=== PATIENT | male | born 1995 | race Caucasian/White ===

== ENCOUNTER 2023-04-28 04:28 | Emergency (ER) | payer OTHER, SELFPAY ==
--- NOTE | ~2023-04-28 | XR_ITS ---
EXAMINATION: XR FOOT, RIGHT CLINICAL INFORMATION: Pain at great toe MTP COMPARISON: None available. TECHNIQUE: AP, lateral, and oblique views of the right foot. FINDINGS: Osseous alignment is anatomic. Joint spaces are maintained. No acute fracture is seen. No significant focal soft tissue abnormality identified. XR/XR foot RT min 3V IMPRESSION: No acute findings identified.
--- NOTE | ~2023-04-28 | XR_ITS ---
EXAMINATION: XR KNEE, RIGHT CLINICAL INFORMATION: Fall COMPARISON: None available. TECHNIQUE: Four views of the right knee. FINDINGS: Osseous alignment is anatomic. Joint spaces are maintained. No acute fracture is seen. No significant joint effusion. There are ovoid densities posterior to the femoral shaft on the lateral view which may reflect overlying external objects. XR/XR knee RT 4V IMPRESSION: 1. No acute osseous findings. 2. Ovoid densities posterior to the femoral shaft on the lateral view may reflect overlying external objects.
[2023-04-28 04:42] VITALS: BP 128/92; BP 143/90; PULSE 104; PULSE 113; RESP 16; TEMP 36.8; O2SAT 95; O2SAT 99; BMI 34.9
[2023-04-28 04:45] VITALS: BP 143/90; PULSE 113; RESP 16; TEMP 36.8; O2SAT 95
[2023-04-28] MEDS: Acetaminophen 325 MG TABLET 975 MG PO (05:57)
[2023-04-28] MEDS: Ibuprofen 400 MG TABLET PO (05:57)
[2023-04-28] MEDS: Bacitracin Oint 0.9 GM PACKET 1 APPL TOPICAL (05:58)
[2023-04-28] MEDS: Diphth,Pertus(ACell),Tet Adult 0.5 ML SYRINGE IM (05:58)
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
[2023-04-28 07:22] VITALS: BP 118/71; PULSE 94; RESP 18; TEMP 36.8; O2SAT 92
--- NOTE | 2023-04-28 08:09 | PC.NURSE ---
patient ambulating with steady gait, provided with additional ice packs and herb wraps.
== END 2023-04-28 08:10 | disposition home or self-care (01) ==
PROVIDERS: Emergency Provider Student in an Organized Health Care Education/Training Program
DX: S89.91XA Unspecified injury of right lower leg, initial encounter (principal); S80.211A Abrasion, right knee, initial encounter; M79.642 Pain in left hand; M79.641 Pain in right hand; W19.XXXA Unspecified fall, initial encounter; Y93.9 Activity, unspecified; Y92.9 Unspecified place or not applicable; Y99.9 Unspecified external cause status
CPT/HCPCS: 73564; 73630; 90471; 90715; 99284

== ENCOUNTER → 2023-04-29 08:51 | Outpatient (BNVA) | payer OTHER, SELFPAY | PROVIDERS: Visit Provider Physician Assistant | DX: S83.91XA Sprain of unspecified site of right knee, initial encounter (principal); S93.601A Unspecified sprain of right foot, initial encounter; S80.212A Abrasion, left knee, initial encounter; S60.511A Abrasion of right hand, initial encounter; W01.198A Fall on same level from slipping, tripping and stumbling with subsequent striking against other object, initial encounter; Y35.891A Legal intervention involving other specified means, law enforcement official injured, initial encounter | CPT/HCPCS: 99204 ==

== ENCOUNTER → 2023-05-03 13:49 | Outpatient (BNVA) | payer OTHER, SELFPAY | PROVIDERS: Visit Provider Physician Assistant | DX: S83.91XA Sprain of unspecified site of right knee, initial encounter (principal); S93.601A Unspecified sprain of right foot, initial encounter; S60.512A Abrasion of left hand, initial encounter; S80.211A Abrasion, right knee, initial encounter; W01.198A Fall on same level from slipping, tripping and stumbling with subsequent striking against other object, initial encounter; Y35.891A Legal intervention involving other specified means, law enforcement official injured, initial encounter | CPT/HCPCS: 99213 ==

== ENCOUNTER → 2024-06-06 08:51 | Outpatient (BNVA) | payer OTHER, SELFPAY | PROVIDERS: Visit Provider Physician Assistant | DX: S16.1XXA Strain of muscle, fascia and tendon at neck level, initial encounter (principal); V89.0XXA Person injured in unspecified motor-vehicle accident, nontraffic, initial encounter; W22.09XA Striking against other stationary object, initial encounter; G47.26 Circadian rhythm sleep disorder, shift work type; Z13.1 Encounter for screening for diabetes mellitus; Z13.29 Encounter for screening for other suspected endocrine disorder | CPT/HCPCS: 80053; 82375; 83036; 84402; 84403; 84443; 99204 ==

== ENCOUNTER → 2024-06-11 09:05 | Outpatient (BNVA) | payer OTHER, SELFPAY | PROVIDERS: Visit Provider Internal Medicine | DX: S16.1XXA Strain of muscle, fascia and tendon at neck level, initial encounter (principal); V89.0XXA Person injured in unspecified motor-vehicle accident, nontraffic, initial encounter; G47.26 Circadian rhythm sleep disorder, shift work type | CPT/HCPCS: 99213 ==

== ENCOUNTER → 2024-06-18 07:47 | Outpatient (BNVA) | payer OTHER, SELFPAY | PROVIDERS: PCP Nurse Practitioner Family; Visit Provider Internal Medicine | DX: G47.26 Circadian rhythm sleep disorder, shift work type (principal) | CPT/HCPCS: 99213 ==

== ENCOUNTER 2024-06-19 07:34 | Outpatient (REF) | payer OTHER, SELFPAY ==
--- OUTSIDE RECORDS SUMMARY | 2024-06-19 09:03 | XMS_ITS | Continuity of Care Document ---
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 It does not include entries that were removed or entered in error. Substance Category Reaction Severity Reaction type Status Date Reported Comments Source No Known Allergies Drug allergy (disorder) active 09/29/2016 [facility] Immunizations Combined list of available immunizations from the Department of Defense and Veterans Affairs facilities. 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 Integration Engineer Status Comments Source influenza, injectable, quadrivalent 2020 zzAddy ht Arm [id number] 158 Seqirus complet ed influenza , injectabl e, quadrival ent 04/02/21 Given Ambulat ory Pharmac y influenza, injectable, quadrivalent 2020 [id number] 943 158 [employer] complet ed influenza , injectabl e, quadrival ent 04/02/21 Given Ambulat ory Pharmac y influenza, injectable, quadrivalent, contains preservative 1 2020 YOAN CALDERÓN [id number] 943 158 Se[employer]irus (SEQ) complet ed influenza , injectabl e, quadrival ent, contains preservat davis DoD COVID Vaccine Moderna 2020 [id number] complet ed COVID Vaccine Moderna 02/10/21 Given Ambulat ory Pharmac y COVID Vaccine Moderna 2020 [id number] complet ed COVID Vaccine Moderna 02/10/21 Given Ambulat ory Pharmac y SARS-COV-2 (COVID-19) vaccine, mRNA, spike protein, LNP, preservative free, 100 mcg or 50 mcg dose 2 2020 [id number] 207 Moderna [employer] (MOD) complet ed SARS-COV- 2 (COVID-19 [...] 50 mcg dose 1 [id number] Moderna Dokogeo, [employer] (MOD) complet ed SARS-COV- 2 (COVID-19 ) vaccine, mRNA, spike protein, LNP, preservat davis free, 100 mcg or 50 mcg dose DoD influenza, injectable, quadrivalent- pf 2020 [id number] 61 150 Seqirus complet ed influenza , injectabl e, quadrival ent-pf 06/07/20 Given Ambulat ory Pharmac y influenza, injectable, quadrivalent- pf 2020 [id number] 61 150 Se[employer] complet ed influenza , injectabl e, quadrival ent-pf 06/07/20 Given Ambulat ory Pharmac y Influenza, injectable, quadrivalent, preservative free 0 2020 [id number] 61 150 Se[employer]irus (SEQ) complet ed Influenza , injectabl e, quadrival ent, preservat davis free DoD influenza, injectable, quadrivalent- pf 2018 [id number] 650 150 Se[employer]irus complet ed influenza , injectabl e, quadrival ent-pf 04/14/19 Given Ambulat ory Pharmac y Influenza, injectable, quadrivalent, preservative free 0 2018 [id number] 650 150 Se[employer]irus (SEQ) complet ed Influenza , injectabl e, quadrival ent, preservat davis free DoD influenza, injectable, quadrivalent- pf 2017 [id number] 150 Se[employer]irus complet ed influenza , injectabl e, quadrival ent-pf 03/11/18 Given Ambulat ory Pharmac y influenza, injectable, quadrivalent- pf 2017 [id number] 150 Se[employer]irus complet ed influenza , injectabl e, quadrival ent-pf 03/11/18 Given Ambulat ory Pharmac y Influenza, injectable, quadrivalent, preservative free 0 2017 [id number] 150 Se[employer]irus (SEQ) comple t ed Influenza [...] vaccine DoD influenza, injectable, quadrivalent- pf 2016 [id number] 150 Se[employer]irus complet ed influenza , injectabl e, quadrival ent-pf 05/06/17 Given Ambulat ory Pharmac y influenza, injectable, quadrivalent- pf 2016 [id number] 150 Se[employer]irus complet ed influenza , injectabl e, quadrival ent-pf 05/06/17 Given Ambulat ory Pharmac y Influenza, injectable, quadrivalent, preservative free 0 2016 [id number] 150 Se[employer]irus (SEQ) comple t ed Influenza [...] vaccine DoD hepatitis B pediatric/ado [facility]cent [id number] GlaxoSmithKli ne complet ed hepatitis B pediatric /adolesce nt 04/21/16 Given Ambulat ory Pharmac y Hep A, ped/adol, 2 dose [facility] [id number] 83 GlaxoSmithKli ne complet ed Hep A, ped/adol, 2 dose 04/21/16 Given Ambulat ory Pharmac y poliovirus vaccine, inactivated 2015 [facility] Thigh [id number] 10 sanofi pasteur complet ed polioviru s vaccine, inactivat ed 04/21/16 Given Ambulat ory Pharmac y Hep A, ped/adol, 2 dose 2015 [id number] 83 GlaxoSmithKli ne complet ed Hep A, ped/adol, 2 dose 04/21/16 Given Ambulat ory Pharmac y poliovirus vaccine, inactivated 2015 [id number] 10 sanofi pasteur complet ed polioviru s [...] poliovirus vaccine, inactivated 1 2015 RITA SCHMIDT [id number] 10 Sanofi Pasteur (PMC) complet ed polioviru s vaccine, inactivat ed DoD hepatitis A vaccine, pediatric/ado lescent dosage, 2 dose schedule 1 2015 ROXANA RITA [id number] 83 SmithKline (SKB) complet ed hepatitis A vaccine, pediatric /adolesce nt dosage, 2 dose schedule DoD tuberculin purified protein derivative 2015 zzLef t Arm [id number] 96 sanofi pasteur complet ed tuberculi n purified protein derivativ e 03/19/16 Given Ambulat ory Pharmac y adenovirus vaccine, live 2015 [id number] 143 Teva Pharmaceutica ls complet ed adenoviru s vaccine, live 03/19/16 Given Ambulat ory Pharmac y tetanus, diphtheria, acellular pertu is 2015 zzLef t Arm [id number] 115 GlaxoSmithKli ne complet ed tetanus, diphtheri a, acellular pertussis 03/19/16 Given Ambulat ory Pharmac y meningococcal oligosacchari de (MCV4O) 2015 zzRig ht Arm [id number] 136 sanofi pasteur complet ed meningoco ccal oligosacc haride (MCV4O) 03/19/16 Given Ambulat ory Pharmac y influenza, seasonal, injectable-pf 2015 zzLef t Arm [id number] 140 Se[employer]irus complet ed influenza , seasonal, injectabl e-pf 03/19/16 Given Ambulat ory Pharmac y tetanus, diphtheria, acellular pertu is 2015 [id number] 115 GlaxoSmithKli ne complet ed tetanus, diphtheri a, acellular pertussis 03/19/16 Given Ambulat ory Pharmac y meningococcal oligosacchari de (MCV4O) 2015 [id number] 136 sanofi pasteur complet ed meningoco ccal oligosacc haride (MCV4O) 03/19/16 Given Ambulat ory Pharmac y influenza, seasonal, injectable-pf 2015 [id number] 140 Seqirus complet ed influenza , seasonal, injectabl e-pf 03/19/16 Given Ambulat ory Pharmac y adenovirus vaccine, live 2015 [id number] 1 143 Teva Pharmaceutica ls complet ed adenoviru s vaccine, live 03/19/16 Given Ambulat ory Pharmac y tuberculin skin test; purified protein derivative solution, intradermal 1 2015 Unknown, Provider [id number] 96 Sanofi Pasteur (PMC) complet ed tuberculi [...] conjugate vaccine (MCV4O) 1 2015 Unknown, Provider [id number] 136 Sanofi Pasteur (PMC) complet ed meningoco ccal oligosacc haride (groups A, C, Y and W-135) diphtheri a toxoid conjugate vaccine (MCV4O) DoD Influenza, seasonal, injectable, preservative free 1 2015 Unknown, Provider [id number] 140 Se[employer]irus (SEQ) complet ed Influenza , seasonal, injectabl e, preservat davis free DoD Adenovirus, type 4 and type 7, live, oral 1 2015 Unknown, Provider [id number] 1 143 [employer] (BRR) complet ed [...] ADM Date DC Date Status Disposition Source [facility] John calvillo([facility] Hearing Conservat ion) OUTPATIENT [id number] ADILSON MCKEON A 03/18 Released w/o Limitations [facility] Juan M gan([facility] D Hearing Conserv ation) [facility] John calvillo([facility] Optometry Clinic) OUTPATIENT [id number] DEWAYNE BURTON 03/18 Released w/o Limitations [facility] Juan M gan([facility] D Optomet ry Clinic) [facility] John calvillo([facility] Rec[employer] Medical [employer]) OUTPATIENT [id number] INITIAL INPROCE FLIP KEARNEY 03/23 Released w/o Limitations [facility] Juan M gan(MCR D [employer] ) [facility] John calvillo(MCRD [employer]) OUTPATIENT [id number] 2ND VISIT FOR FLIP GARNER 04/21 Released w/o Limitations [facility] Juan M gan(MCR D [employer] ) [facility]) OUTPATIENT [id number] gabbie-imm s KRIS, YVONNE ESQUIVEL 09/22 Released w/o Limitations [facility]( [facility]) [facility]) OUTPATIENT [id number] GABBIE-COL D SYMPTOM RADHA SEXTON 09/29 Sick at Home/Quarter s [facility]( [facility]) [facility]) OUTPATIENT [id number] gabbie-sep s dalei RADHA Mcleod 09/29 Released w/o Limitations [facility]( [facility]) [facility]) OUTPATIENT [id number] 9 Notes Entered by: ADRIANO SHERMAN 01 Apr 2021 0714 ------- ------- ------- ------- -- FLU WILL DENNIS 04/01 Released w/o Limitations [facility]( [facility]) Procedures Combined list of: 1) Procedures from Department of Veterans Affairs facilities going back up to thelast 18 months, not all VA non-surgical procedures are included; 2) All procedures from the Department of Defense facilities. Procedure Procedure Type Code Date Augusto Garcia e Immunization Administration By Injection, One Vaccine Immunization Administration By Injection, One Vaccine 41001 LUIS MANUEL BOWMAN Hepatitis A And Hepatitis B (Intramuscular Use) Adult Dosage Hepatitis A And Hepatitis B (Intramuscular Use) Adult Dosage [id number] 017 LUIS MANUEL ROSENBAUM Hep A-Hep B; Series #: 1; 1.0 mL; IM; Left Arm; Mfg: Other; Lot: [id number]. [facility] Physician Supervised Injection Intramuscular Antibiotic Physician Supervised Injection Intramuscular Antibiotic 79767 [facility] Hepatitis B Vaccine (Active); [place] To 11 Years Hepatitis B Vaccine (Active); [place] To 11 Years [address]195 [facility] Hep B, adolescent or pediatric; Series #: 1; .5 mL; IM; Right Thigh; Mfg: [employer]; Lot: [id number]. [facility] Vaccines Viral Polio, Inactivated Vaccines Viral Polio, Inactivated 41484 [facility] IPV; Series #: 1; .5 mL; IM; Right Thigh; Mfg: [employer] Pasteur; Lot: [id number]. [facility] Hep A Vac Ped/Adol Dosage (Intramusc Use) 2 Dose Schedule Hep A Vac Ped/Adol Dosage (Intramusc Use) 2 Dose Schedule 51340 [facility] Hep A ped/adol, 2 dose; Series #: 1; .5 mL; IM; Right Thigh; Mfg: [employer]; Lot: [id number]. [facility] Immunization Administration By Injection, One Vaccine Immunization Administration By Injection, One Vaccine 31997 [facility] Immunization Administration By Injection, Each Additional Vaccine Immunization Administration By Injection, Each Additional Vaccine 82039 [facility] Skin Test Anergy Tuberculin Intradermal Skin Test Anergy Tuberculin Intradermal 27804 [facility] Meningococcal Conjugate Vaccine Quadrivalent Serogroups A, C, Y, W-135 [facility] Tdap Vaccine Tdap Vaccine 18728 [facility] Influenza Split Virus Vaccine 0.5mL Dosage Intramuscular Preservative Free [facility] Vaccines Adenovirus Type 7 Live, For Oral Use Vaccines Adenovirus Type 7 Live, For Oral Use 85334 [facility] Immunization Administration By Injection, One Vaccine Immunization Administration By Injection, One Vaccine 37898 [facility] Immunization Administration By Injection, Each Additional Vaccine Immunization Administration By Injection, Each Additional Vaccine 73174 [facility] Immunization Admin Intranasal / Oral Each Additional Vaccine Immunization Admin Intranasal / Oral Each Additional Vaccine 92075 [facility] Vaccines Adenovirus Type 4 Live, For Oral Use Vaccines Adenovirus Type 4 Live, For Oral Use 98708 [facility] Venipuncture Venipuncture 18444 [facility] Physician Supervised Injection Intramuscular Antibiotic Physician Supervised Injection Intramuscular Antibiotic 34908 [facility] Screening Test Of Visual Acuity, Quantitative, Bilateral Screening Test Of Visual Acuity, Quantitative, Bilateral 27620 [facility] [employer] Services Fitting Monofocal Except For Aphakia Spectacles Services Fitting Monofocal Except For Aphakia 18152 [facility] Testing Audiometry Group Testing 72413 DOMITILA MCKENZIE [facility] Physician Supervised Group Educational Services Physician Supervised Group Educational Services 23679 DOMITILA MCKENZIE [facility] Influenza Split Virus Vaccine IM With Preservative Quadrivalent 0.50mL Dosage Influenza Split Virus Vaccine IM With Preservative Quadrivalent 0.50mL [facility]osage 05330 [facility] Influenza, Inj., quad., contains preservative; Series #: 1; 0.5 mL; IM; Right Arm; Mfg: Seqirus; Lot: [id number]; VIS given (Marvin: 01/02/2021). [facility] Immunization Administration By Injection, One Vaccine Immunization Administration By Injection, One Vaccine 02847 STEPHANEYOAN PINEDA [facility] IMMUNIZATION ADMINISTRATION (INCLUDES PERCUTANEOUS, INTRADERMAL, SUBCUTANEOUS, OR INTRAMUSCULAR INJECTIONS); 1 VACCINE (SINGLE OR COMBINATION VACCINE/TOXOID) [facility] HEPATITIS A AND HEPATITIS B VACCINE (HEPA-HEPB), ADULT DOSAGE, FOR INTRAMUSCULAR USE 017 [facility] THERAPEUTIC, PROPHYLACTIC, OR DIAGNOSTIC INJECTION (SPECIFY SUBSTANCE OR DRUG); SUBCUTANEOUS OR INTRAMUSCULAR [facility] ADENOVIRUS VACCINE, TYPE 7, LIVE, FOR ORAL USE [facility] SCREENING TEST OF VISUAL ACUITY, QUANTITATIVE, BILATERAL [facility] PHYS/OTH QUALIFIED HEALTH [place] TECHNICIAN QUALIFIED,EDUCATI ON,TRAIN,LICENSUR E/REGULATION (WHEN APPLICABLE) EDUC SER RENDERED TO PATS IN A GRP SETTING (EG,,OBES ITY,OR DIABETIC INSTRUCT) [facility] No data available for this section Ambulato ry Pharmacy Social History Combined list of available smoking, tobacco, and other social history from Department of Defense and Veterans Affairs facilities. Social History Type Response Date Comment Sour e This section is an empty social history section. [facility] Assessment and Plan Combined list of future [...] of Defense and Veterans Affairs (VA).VA Functional [place] Measurement (FIM) Scale: 1 = Total Assistance (Subject = 0% +), 2 = Maximal Assistance (Subject = 25% +), 3 = Moderate Assistance (Subject = 50% +), 4 = Minimal Assistance (Subject = 75% +), 5 = Supervision, 6 = Modified [place] (Device), 7 = Complete [place] (Timely, Safely). Assessment Date/Time Source Assessment Type Assessment Skill Assessment Score Assessment Details No data available for this section
[2024-06-19 17:53] LABS: Hematocrit 49.6 % (42.0-52.0); Hemoglobin 16.9 g/dl (14.0-18.0); Mean Corpuscular HGB Conc 34.1 g/dl (31.0-36.0); Mean Corpuscular Hemoglobin 30.5 pg (27.0-33.0); Mean Corpuscular Volume 89.5 fL (80.0-98.0); Mean Platelet Volume 10.6 fL (9.4-12.4); Platelet Count 250 X10*3/uL (160-400); Red Blood Count 5.54 X10*6/uL (4.60-5.80); Red Cell Distribution Width 13.2 % (11.0-16.0); White Blood Count 6.2 X10*3/uL (4.8-10.8)
[2024-06-19 18:07] LABS: Estimated Average Glucose 103 mg/dL; Hemoglobin A1C 137.8434 umol/L; Hemoglobin A1c % 5.2 % (<6.0); Total Hemoglobin (HGBA1C) 4162.2911 umol/L
[2024-06-19 18:28] LABS: Albumin Level 4.2 g/dL (3.5-5.0); Alkaline Phosphatase 76 U/L (39-117); Anion Gap 12 (12-20); Aspartate Amino Transferase 36 U/L (5-37); Bilirubin Total 0.4 mg/dL (0.0-1.0); Blood Urea Nitrogen 13 mg/dL (9-16); Calcium 8.8 mg/dL (8.4-10.2); Carbon Dioxide 25 mmol/L (22-29); Chloride 104 mmol/L (96-108); Estimated Glomerular Filt Rate > 60; Glucose Random 94 mg/dL (60-115); Potassium 4.1 mmol/L (3.3-5.1); Sodium 137 mmol/L (135-145)
[2024-06-19 18:33] LABS: Alanine Aminotransferase 44 U/L (0-40); Ferritin 59 ng/mL (20-250)
[2024-06-19 18:39] LABS: Folate 8.7 ng/mL (> or = 4.0); Vitamin B12 470 pg/mL (200-900)
[2024-06-22 08:48] LABS: Methylmalonic Acid 137 nmol/L (55-335)
== END 2024-06-19 07:35 | disposition home or self-care (01) ==
LOC: HO.HKASLDS 07:34
PROVIDERS: PCP Nurse Practitioner Family; Visit Provider Physician Assistant Medical
DX: G25.81 Restless legs syndrome (principal); R53.83 Other fatigue; G47.9 Sleep disorder, unspecified; F09 Unspecified mental disorder due to known physiological condition; Z13.1 Encounter for screening for diabetes mellitus
CPT/HCPCS: 36415; 80053; 82306; 82607; 82728; 82746; 83036; 83921; 84443; 85027

== ENCOUNTER 2024-06-19 07:34 | Outpatient (AMB) | payer OTHER, SELFPAY ==
--- OUTSIDE RECORDS SUMMARY | 2024-06-19 07:38 | XMS_ITS | Continuity of Care Document ---
Author Name [employer] Organization [employer] Care Team Providers Care Superintendent Custodian Janitor Name Role Phone [employer] Unavailable Unavailable Allergies, Adverse Reactions, Alerts Combined list of allergies from Department of Defense and Veterans Affairs facilities. It does not include entries that were removed or entered in error. Substance Category Reaction Severity Reaction type Status Date Reported Comments Source No Known Allergies Drug allergy (disorder) active 09/29/2016 [facility] Immunizations Combined list of available immunizations from the Department of Defense and Veterans Affairs facilities. 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 Status Comments Source influenza, injectable, quadrivalent 2020 zzAddy ht Arm [id number] 158 Seqirus complet ed influenza , injectabl e, quadrival ent 04/02/21 Given Ambulat ory Pharmac y influenza, injectable, quadrivalent 2020 [id number] 158 Seqirus complet ed influenza , injectabl e, quadrival ent 04/02/21 Given Ambulat ory Pharmac y influenza, injectable, quadrivalent, contains preservative 1 2020 YOAN CALDERÓN [id number] 943 158 Seqirus (SEQ) complet ed influenza , injectabl e, quadrival ent, contains preservat davis DoD COVID Vaccine Moderna 2020 [id number] complet ed COVID Vaccine Moderna 02/10/21 Given Ambulat ory Pharmac y COVID Vaccine Moderna 2020 [id number] complet ed COVID Vaccine Moderna 02/10/21 Given Ambulat ory Pharmac y SARS-COV-2 (COVID-19) vaccine, mRNA, spike protein, LNP, preservative free, 100 mcg or 50 mcg dose 2 2020 [id number] 207 Moderna [employer] (MOD) complet ed SARS-COV- 2 (COVID-19 ) vaccine, mRNA, spike protein, LNP, preservat davis free, 100 mcg or 50 mcg dose DoD COVID Vaccine Moderna [id number] 207 complet ed COVID Vaccine Moderna 01/10/21 Given Ambulat ory Pharmac y COVID Vaccine Moderna [id number] complet ed COVID Vaccine Moderna 01/10/21 Given Ambulat ory Pharmac y SARS-COV-2 (COVID-19) vaccine, mRNA, spike protein, LNP, preservative free, 100 mcg or 50 mcg dose 1 [id number] 207 Moderna Rhapsody, [employer]. (MOD) complet ed SARS-COV- 2 (COVID-19 ) vaccine, mRNA, spike protein, LNP, preservat davis free, 100 mcg or 50 mcg dose DoD influenza, injectable, quadrivalent- pf 2020 [id number] 150 Seqirus complet ed influenza , injectabl e, quadrival ent-pf 06/07/20 Given Ambulat ory Pharmac y influenza, injectable, quadrivalent- pf 2020 [id number] 150 Seqirus complet ed influenza , injectabl e, quadrival ent-pf 06/07/20 Given Ambulat ory Pharmac y Influenza, injectable, quadrivalent, preservative free 0 2020 [id number] 61 150 Seqirus (SEQ) complet ed Influenza , injectabl e, quadrival ent, preservat davis free DoD influenza, injectable, quadrivalent- pf 2018 [id number] 650 150 Seqirus complet ed influenza , injectabl e, quadrival ent-pf 04/14/19 Given Ambulat ory Pharmac y Influenza, injectable, quadrivalent, preservative free 0 2018 [id number] 650 150 Seqirus (SEQ) complet ed Influenza , injectabl e, quadrival ent, preservat davis free DoD influenza, injectable, quadrivalent- pf 2017 [id number] 150 Seqirus complet ed influenza , injectabl e, quadrival ent-pf 03/11/18 Given Ambulat ory Pharmac y influenza, injectable, quadrivalent- pf 2017 [id number] 150 Seqirus complet ed influenza , injectabl e, quadrival ent-pf 03/11/18 Given Ambulat ory Pharmac y Influenza, injectable, quadrivalent, preservative free 0 2017 [id number] 150 Seqirus (SEQ) comple t ed Influenza , injectabl e, quadrival ent, preservat davis free DoD hepatitis A adult vaccine 2017 [id number] 52 GlaxoSmithKli ne complet ed hepatitis A adult vaccine 01/07/18 Given Ambulat ory Pharmac y hepatitis B adult vaccine 2017 [id number] 43 GlaxoSmithKli ne complet ed hepatitis B adult vaccine 01/07/18 Given Ambulat ory Pharmac y hepatitis B adult vaccine 2017 [id number] 43 GlaxoSmithKli ne complet ed hepatitis B adult vaccine 01/07/18 Given Ambulat ory Pharmac y hepatitis A adult vaccine 2017 [id number] 52 GlaxoSmithKli ne complet ed hepatitis A adult vaccine 01/07/18 Given Ambulat ory Pharmac y hepatitis B vaccine, adult dosage 2 2017 [id number] 43 SmithKline (SKB) complet ed hepatitis B vaccine, adult dosage DoD hepatitis A vaccine, adult dosage 2 2017 [id number] 52 SmithKline (SKB) complet ed hepatitis A vaccine, adult dosage DoD measles and rubella virus vaccine 0 2017 04 () Not Given measles and rubella virus vaccine DoD influenza, injectable, quadrivalent- pf 2016 [id number] 150 Seqirus complet ed influenza , injectabl e, quadrival ent-pf 05/06/17 Given Ambulat ory Pharmac y influenza, injectable, quadrivalent- pf 2016 [id number] 150 Seqirus complet ed influenza , injectabl e, quadrival ent-pf 05/06/17 Given Ambulat ory Pharmac y Influenza, injectable, quadrivalent, preservative free 0 2016 [id number] 150 Seqirus (SEQ) comple t ed Influenza , injectabl e, quadrival ent, preservat davis free DoD varicella virus vaccine 0 2016 21 () Not Given varicella virus vaccine DoD hepatitis A-hepatitis B vaccine 2016 zzLef t Arm [id number] Unknown complet ed hepatitis A-hepatit is B vaccine 09/22/16 Given Ambulat ory Pharmac y hepatitis A-hepatitis B vaccine 2016 [id number] Unknown complet ed hepatitis A-hepatit is B vaccine 09/22/16 Given Ambulat ory Pharmac y hepatitis A-hepatitis B vaccine 2016 [id number] 104 Unknown complet ed hepatitis A-hepatit is B vaccine 09/22/16 Given Ambulat ory Pharmac y hepatitis A and hepatitis B vaccine 1 2016 LUIS MANUEL ROSENBAUM [id number] 104 Other (OTH) complet ed hepatitis A and hepatitis B vaccine DoD varicella virus vaccine 0 2015 21 () Not Given varicella virus vaccine DoD measles and rubella virus vaccine 0 2015 04 () Not Given measles and rubella virus vaccine DoD [id number] GlaxoSmithKli ne complet ed hepatitis B pediatric /adolesce nt 04/21/16 Given Ambulat ory Pharmac y Hep A, ped/adol, 2 dose [id number] GlaxoSmithKli ne complet ed Hep A, ped/adol, 2 dose 04/21/16 Given Ambulat ory Pharmac y poliovirus vaccine, inactivated 2015 [facility] Thigh [id number] 10 sanofi pasteur complet ed polioviru s vaccine, inactivat ed 04/21/16 Given Ambulat ory Pharmac y Hep A, ped/adol, 2 dose 2015 [id number] 83 GlaxoSmithKli ne complet ed Hep A, ped/adol, 2 dose 04/21/16 Given Ambulat ory Pharmac y poliovirus vaccine, inactivated 2015 [id number] 10 sanofi pasteur complet ed polioviru s vaccine, inactivat ed 04/21/16 Given Ambulat ory Pharmac y hepatitis B pediatric/ado lescent 2015 [id number] 08 GlaxoSmithKli ne complet ed hepatitis B pediatric /adolesce nt 04/21/16 Given Ambulat ory Pharmac y hepatitis B vaccine, pediatric or pediatric/ado lescent dosage 1 2015 RITA SCHMIDT [id number] 08 SmithKline (SKB) complet ed hepatitis B vaccine, pediatric or pediatric /adolesce nt dosage DoD poliovirus vaccine, inactivated 1 2015 RITA SCHMIDT [id number] 10 Sanofi Pasteur (PMC) complet ed polioviru s vaccine, inactivat ed DoD hepatitis A vaccine, pediatric/ado lescent dosage, 2 dose schedule 1 2015 ROXANA RITA [id number] 83 SmithKline (SKB) complet ed hepatitis A vaccine, pediatric /adolesce nt dosage, 2 dose schedule DoD tuberculin purified protein derivative 2015 zzLef t Arm [id number] 96 sanofi pasteur complet ed tuberculi n purified protein derivativ e 03/19/16 Given Ambulat ory Pharmac y adenovirus vaccine, live 2015 [id number] 1 143 Teva Pharmaceutica ls complet ed adenoviru s vaccine, live 03/19/16 Given Ambulat ory Pharmac y tetanus, diphtheria, acellular pertu is 2015 zzLef t Arm [id number] 115 GlaxoSmithKli ne complet ed tetanus, diphtheri a, acellular pertussis 03/19/16 Given Ambulat ory Pharmac y meningococcal oligosacchari de (MCV4O) 2015 zzRig ht Arm [id number] 136 sanofi pasteur complet ed meningoco ccal oligosacc haride (MCV4O) 03/19/16 Given Ambulat ory Pharmac y influenza, seasonal, injectable-pf 2015 zzLef t Arm [id number] 140 Seqirus complet ed influenza , seasonal, injectabl e-pf 03/19/16 Given Ambulat ory Pharmac y tetanus, diphtheria, acellular pertu is 2015 [id number] 115 GlaxoSmithKli ne complet ed tetanus, diphtheri a, acellular pertussis 03/19/16 Given Ambulat ory Pharmac y meningococcal oligosacchari de (MCV4O) 2015 [id number] 136 sanofi pasteur complet ed meningoco ccal oligosacc haride (MCV4O) 03/19/16 Given Ambulat ory Pharmac y influenza, seasonal, injectable-pf 2015 [id number] 140 Seqirus complet ed influenza , seasonal, injectabl e-pf 03/19/16 Given Ambulat ory Pharmac y adenovirus vaccine, live 2015 [id number] 1 143 Teva Pharmaceutica ls complet ed adenoviru s vaccine, live 03/19/16 Given Ambulat ory Pharmac y tuberculin skin test; purified protein derivative solution, intradermal 1 2015 Unknown, Provider [id number] 96 Sanofi Pasteur (PMC) complet ed tuberculi n skin test; purified protein derivativ e solution, intraderm al DoD tetanus toxoid, reduced diphtheria toxoid, and acellular pertu is vaccine, adsorbed 1 2015 Unknown, Provider [id number] 115 SmithKline (SKB) complet ed tetanus toxoid, reduced diphtheri a toxoid, and acellular pertussis vaccine, adsorbed DoD meningococcal oligosacchari de (groups A, C, Y and W-135) diphtheria toxoid conjugate vaccine (MCV4O) 1 2015 Unknown, Provider [id number] 136 Sanofi Pasteur (PMC) complet ed meningoco ccal oligosacc haride (groups A, C, Y and W-135) diphtheri a toxoid conjugate vaccine (MCV4O) DoD Influenza, seasonal, injectable, preservative free 1 2015 Unknown, Provider [id number] 140 Seqirus (SEQ) complet ed Influenza , seasonal, injectabl e, preservat davis free DoD Adenovirus, type 4 and type 7, live, oral 1 2015 Unknown, Provider [id number] 1 143 [employer] (BRR) complet ed Adenoviru s, type 4 and type 7, live, oral DoD Vital Signs Combined list of inpatient and outpatient Vital Signs from Department of Defense and Veterans Affairs, ranging from 12 months to all on record, depending upon the facility. Vital Sign Value Date Comments Source No data available for this section Ambulatory Pharmacy Encounters Combined list of: 1) Encounters from Department of Veterans Affairs facilities going back up to thelast 18 months. 2) Encounters from the Department of Defense facilities going back up to 280 months. Location Location Details Encounter Type Encounter Number Reason For Visit Attending Provider ADM Date DC Date Status Disposition Source [facility] John calvillo([facility] Hearing Conservat ion) OUTPATIENT [id number] ADILSON MCKEON A 03/18 Released w/o Limitations [facility] Juan M gan([facility] D Hearing Conserv ation) [facility] John calvillo([facility] Optometry Clinic) OUTPATIENT [id number] DEWAYNE BURTON 03/18 Released w/o Limitations [facility] Juan M gan([facility] D Optomet ry Clinic) [facility] John calvillo([facility] Recruit Medical Process) OUTPATIENT [id number] INITIAL INPROCE FLIP KEARNEY 03/23 Released w/o Limitations [facility] Juan M gan([facility] [employer] ) [facility] John calvillo([facility] [employer]) OUTPATIENT [id number] 2ND VISIT FOR FLIP GARNER 04/21 Released w/o Limitations [facility] Juan M gan([facility] D [employer] ) [facility]) OUTPATIENT [id number] gabbie-imm s KRIS, YVONNE ESQUIVEL 09/22 Released w/o Limitations [facility]( [facility]) [facility]) OUTPATIENT [id number] GABBIE-COL D SYMPTOM RADHA SEXTON 09/29 Sick at Home/Quarter s [facility]( [facility]) [facility]) OUTPATIENT [id number] gabbie-sep s screeni RADHA Mcleod 09/29 Released w/o Limitations [facility]( [facility]) [facility]) OUTPATIENT [id number] Notes Entered by: ADRIANO SHERMAN 01 Apr 2021 0714 ------- ------- ------- ------- -- FLU WILL DENNSI 04/01 Released w/o Limitations [facility]( [facility]) Procedures Combined list of: 1) Procedures from Department of Veterans Affairs facilities going back up to thelast 18 months, not all VA non-surgical procedures are included; 2) All procedures from the Department of Defense facilities. Procedure Procedure Type Code Date Perfomer Comments Sourc e No data available for this section Amb[facility] Pharmacy IMMUNIZATION ADMINISTRATION (INCLUDES PERCUTANEOUS, INTRADERMAL, SUBCUTANEOUS, OR INTRAMUSCULAR INJECTIONS); 1 VACCINE (SINGLE OR COMBINATION VACCINE/TOXOID) [address] [place] [address] HEPATITIS A AND HEPATITIS B VACCINE (HEPA-HEPB), ADULT DOSAGE, FOR INTRAMUSCULAR USE [facility] THERAPEUTIC, PROPHYLACTIC, OR DIAGNOSTIC INJECTION (SPECIFY SUBSTANCE OR DRUG); SUBCUTANEOUS OR INTRAMUSCULAR [facility] ADENOVIRUS VACCINE, TYPE 7, LIVE, FOR ORAL USE [facility] SCREENING TEST OF VISUAL ACUITY, QUANTITATIVE, BILATERAL [facility] PHYS/OTH QUALIFIED HEALTH ELECTRIC RELAY TESTER QUALIFIED,EDUCATI ON,TRAIN,LICENSUR E/REGULATION (WHEN APPLICABLE) EDUC SER RENDERED TO PATS IN A GRP SETTING (EG,,OBES ITY,OR DIABETIC INSTRUCT) [facility] Immunization Administration By Injection, One Vaccine Immunization Administration By Injection, One Vaccine 23440 LUIS MANUEL ROSENBAUM Hepatitis A And Hepatitis B (Intramuscular Use) Adult Dosage Hepatitis A And Hepatitis B (Intramuscular Use) Adult Dosage 85443 LUIS MANUEL ROSENBAUM Hep A-Hep B; Series #: 1; 1.0 mL; IM; Left Arm; Mfg: Other; Lot: [id number]. [facility] Physician Supervised Injection Intramuscular Antibiotic Physician Supervised Injection Intramuscular Antibiotic 64499 RITA SCHMIDT DoD Hepatitis B Vaccine (Active); To 11 Years Hepatitis B Vaccine (Active); To 11 Years 74060 PRANEETHRITA Pickett Hep B, adolescent or pediatric; Series #: 1; .5 mL; IM; Right Thigh; Mfg: [employer]ine; Lot: [id number]. [facility] Vaccines Viral Polio, Inactivated Vaccines Viral Polio, Inactivated 09283 PRANEETHRITA Pickett IPV; Series #: 1; .5 mL; IM; Right Thigh; Mfg: Sanofi Pasteur; Lot: [id number]. [facility] Hep A Vac Ped/Adol Dosage (Intramusc Use) 2 Dose Schedule Hep A Vac Ped/Adol Dosage (Intramusc Use) 2 Dose Schedule 17338 PRANEETHRITA Pickett Hep A ped/adol, 2 dose; Series #: 1; .5 mL; IM; Right Thigh; Mfg: [employer]; Lot: [id number]. [facility] Immunization Administration By Injection, One Vaccine Immunization Administration By Injection, One Vaccine 19123 [facility] Immunization Administration By Injection, Each Additional Vaccine Immunization Administration By Injection, Each Additional Vaccine 52630 [facility] Skin Test Anergy Tuberculin Intradermal Skin Test Anergy Tuberculin Intradermal 50204 [facility] Meningococcal Conjugate Vaccine Quadrivalent Serogroups A, C, Y, W-135 [facility] Tdap Vaccine Tdap Vaccine 11218 [facility] Influenza Split Virus Vaccine 0.5mL Dosage Intramuscular Preservative Free [facility] Vaccines Adenovirus Type 7 Live, For Oral Use Vaccines Adenovirus Type 7 Live, For Oral Use 25609 [facility] Immunization Administration By Injection, One Vaccine Immunization Administration By Injection, One Vaccine 02320 [facility] Immunization Administration By Injection, Each Additional Vaccine Immunization Administration By Injection, Each Additional Vaccine 41205 [facility] Immunization Admin Intranasal / Oral Each Additional Vaccine Immunization Admin Intranasal / Oral Each Additional Vaccine 24076 [facility] Vaccines Adenovirus Type 4 Live, For Oral Use Vaccines Adenovirus Type 4 Live, For Oral Use 78335 [facility] Venipuncture Venipuncture 11124 [facility] Physician Supervised Injection Intramuscular Antibiotic Physician Supervised Injection Intramuscular Antibiotic 01689 [facility] Screening Test Of Visual Acuity, Quantitative, Bilateral Screening Test Of Visual Acuity, Quantitative, Bilateral [address] [facility] Spectacles Services Fitting Monofocal Except For Aphakia Spectacles Services Fitting Monofocal Except For Aphakia [address] [facility] Audiometry Group Testing Audiometry Group Testing [address] [facility] Physician Supervised Group Educational Services Physician Supervised Group Educational Services 07856 DOMITILA MCKENZIE Influenza Split Virus Vaccine IM With Preservative Quadrivalent 0.50mL Dosage Influenza Split Virus Vaccine IM With Preservative Quadrivalent 0.50mL Dosage 94783 STEPHANEYOAN PINEDAT Influenza, Inj., quad., contains preservative; Series #: 1; 0.5 mL; IM; Right Arm; Mfg: Seqirus; Lot: [id number]; VIS given (Marvin: 01/02/2021). [facility] Immunization Administration By Injection, One Vaccine Immunization Administration By Injection, One Vaccine [address] [facility] Social History Combined list of available smoking, tobacco, and other social history from Department of Defense and Veterans Affairs facilities. Social History Type Response Date Comment [facility] e This section is an empty social history section. [facility] Assessment and Plan Combined list of future care activities from Department of Defense and Veterans Affairs facilities (e.g., assessment and plan notes, appointments, orders, and referrals). Additional future care activities may be listed in the Plan of Care section. Result Assessment and Plan Date Source Assessment and Plan No data available for this section 06/19/2024 Ambulatory Pharmacy Functional Status Combined list of recent functional and cognitive assessments recorded at Department of Defense and Veterans Affairs (VA).[facility] Functional [place] Measurement (FIM) Scale: 1 = Total Assistance (Subject = 0% +), 2 = Maximal Assistance (Subject = 25% +), 3 = Moderate Assistance (Subject = 50% +), 4 = Minimal Assistance (Subject = 75% +), 5 = Supervision, 6 = Modified [place] (Device), 7 = Complete [place] (Timely, Safely). Assessment Date/Time Source Assessment Type Assessment Skill Assessment Score Assessment Details No data available for this section
[2024-06-19 07:53] VITALS: BP 112/86; PULSE 89; O2SAT 93; BMI 37.3
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
== END 2024-06-19 08:38 | disposition home or self-care (01) ==
PROVIDERS: PCP Nurse Practitioner Family; Visit Provider Physician Assistant Medical
DX: R53.83 Other fatigue (principal); G47.23 Circadian rhythm sleep disorder, irregular sleep wake type; G25.81 Restless legs syndrome
CPT/HCPCS: 99203

== ENCOUNTER → 2024-08-13 11:50 | Outpatient (REF) | payer OTHER, SELFPAY | LOC: HO.SL 11:50 | PROVIDERS: PCP Nurse Practitioner Family; Visit Provider Physician Assistant Medical | DX: G47.30 Sleep apnea, unspecified (principal); R53.83 Other fatigue; G47.9 Sleep disorder, unspecified; G25.81 Restless legs syndrome | CPT/HCPCS: 95806 ==

== ENCOUNTER → 2024-08-15 13:14 | Outpatient (BNV) | payer OTHER, SELFPAY | PROVIDERS: PCP Nurse Practitioner Family; Visit Provider Psychiatry & Neurology Neurology | DX: G47.33 Obstructive sleep apnea (adult) (pediatric) (principal) | CPT/HCPCS: 95806 ==

== ENCOUNTER 2024-10-12 23:06 | Emergency (ER) | payer OTHER, SELFPAY ==
[2024-10-12 23:08] VITALS: BP 148/70; PULSE 84; RESP 18; TEMP 36.3; O2SAT 98; BMI 34.9
--- NOTE | 2024-10-13 01:25 | ED_ITS ---
HPI - Skin/Abscess/Foreign Bdy General Chief complaint: Skin/Abscess/Foreign Body Stated complaint: Rash Time Seen by Provider: 10/13/24 01:19 Source: patient Mode of arrival: ambulatory Limitations: no limitations History of Present Illness ED Provider: HPI narrative: Patient has been no significant past medical history noticed sudden onset of macular rash on his trunk with itching prior to arrival had sore throat 5 days ago getting better no lupus tongue swelling Related Data Previous Rx's ?Medication ?Instructions ?Recorded ibuprofen 800 mg tablet 800 mg PO TID pain swelling #60 04/29/23 tabs diphenhydramine HCl 25 mg capsule 50 mg (2 x 25 mg) PO TID PRN 10/13/24 (Benadryl) allergic reaction #20 caps Allergies Allergy/AdvReac Type Severity Reaction Status Date / Time No Known Allergies Allergy Verified 10/12/24 23:10 Review of Systems Review of Systems: Yes all other systems are reviewed and are negative PMFSH Social History Social History Smoked in Last 30 Days: Yes Use of substances other than those prescribed or required for medical reasons: No Advance Directives: No Advance Directives Information Provided: Yes Do you have a plan to hurt others: No Plan Physical Exam Vital Signs: Vital Signs: Last Vital Signs Temp 97.6 F 10/13/24 02:51 Pulse 83 10/13/24 02:51 Resp 18 10/13/24 02:51 BP 141/78 H 10/13/24 02:51 Pulse Ox 98 10/13/24 02:51 O2 Del Method Room Air 10/13/24 02:51 BMI result Body Mass Index 34.9 Appearance: Alert. Oriented X3. No acute distress. Eyes: PERRLA, No Nystagmus ENT: Pharynx normal. Oral Mucosa moist tongue and lips are normal Neck: Normal inspection. Neck supple. CVS: Normal heart rate and rhythm. Pulses normal. Respiratory: No respiratory distress. Equal air entry bilateral, no wheezing/rales/rhonchi Abdomen: Soft and nontender. Bowel sounds are present, no mass palpable, no CVA tenderness Skin: Skin warm and dry. Macular rash on the trunk no hives Extremities: No lower extremity edema. No calf tenderness Neuro: Oriented X 3. Medications Administered Discontinued Medications Generic Name Dose Route Start Last Admin Trade Name Freq PRN Reason Stop Dose Admin Diphenhydramine HCl 50 mg 10/13/24 02:20 10/13/24 02:42 Diphenhydramine Hcl 25 Mg Capsule PO 10/13/24 02:21 50 mg ONCE ONE Administration Medical Decision Making Medical Decision Making [facility] Narrative: Patient with allergic reaction to unknown agent give Benadryl strep test is negative Lab Data MDM Lab Attestation statement: I reviewed the patient's lab results. Labs: Lab Results 10/13/24 Range/Units 01:44 S. pyogenes GrpA MASON Negative (Negative) Discharge Plan Discharge Clinical Impression: Allergic reaction Patient Disposition: Home, Self-Care Instructions: General Allergic Reaction (ED) Additional Instructions: Cause of allergic reaction is not clear Take Benadryl 1 tablet every 6 hours as needed for itching Prescriptions: New diphenhydramine HCl [Benadryl] 25 mg capsule 50 mg PO TID PRN (Reason: allergic reaction) Qty: 20 0RF No Action ibuprofen 800 mg tablet 800 mg PO TID Qty: 60 0RF Interventions: ED Discharge Assessment Last Done: 10/13/24 02:51 Discharge Date/Time: 10/13/24 02:53 Print Language: Urdu
[2024-10-13 02:09] LABS: IDNOW Serial# 6674DD1D
[2024-10-13 02:10] LABS: Strep A Nucleic Acid Negative (Negative)
[2024-10-13] MEDS: diphenhydrAMINE HCL 25 MG CAPSULE 50 MG PO (02:42)
[2024-10-13 02:46] VITALS: BP 141/78; PULSE 83; RESP 18; TEMP 36.4; O2SAT 98
--- NOTE | 2024-10-13 02:46 | PC.NURSE ---
Pt a&ox4, no signs of distress. Pt ambulates with a steady gait. Pt medicated per mar Pt denies pain/sob Plan of care ongoing.
[2024-10-13 02:51] VITALS: BP 141/78; PULSE 83; RESP 18; TEMP 36.4; O2SAT 98
== END 2024-10-13 02:53 | disposition home or self-care (01) ==
PROVIDERS: Emergency Provider Internal Medicine
DX: R21 Rash and other nonspecific skin eruption (principal); T78.40XA Allergy, unspecified, initial encounter; X58.XXXA Exposure to other specified factors, initial encounter; Y93.9 Activity, unspecified; Y92.9 Unspecified place or not applicable; Y99.9 Unspecified external cause status
CPT/HCPCS: 87651; 99283; 99284